=== PATIENT | male | born 1940 | race Caucasian/White ===

== ENCOUNTER 2023-10-20 12:40 | Outpatient (OUT) | payer MEDICARE, SELFPAY ==
--- NOTE | 2023-10-20 12:54 | XR_ITS ---
The [address] [address] Patient Name: KRISTY ABREU MRN: [id number] date: 1940 Sex: M Assigned Patient Location: LAB Current Patient Location: Accession/Order Number: [id number] Exam Date: 10/20/2023 13:00 Report Date: 10/23/2023 07:38 At the request of: MICHEL BUCKLEY Procedure: XR cervical spine 5V EXAMINATION: XR cervical spine 5V HISTORY: Cervical Disc Disease M50.90 COMPARISON: No relevant comparison available. FINDINGS: BONES: 2 mm anterolisthesis of C4 on C5. Mild degenerative spondylosis. Gdob-[id number] facet osteoarthropathy DISC SPACES: Moderate disc space narrowing C3-C4 PARASPINOUS: Negative. No paraspinous abnormality is seen. OTHER: Negative. XR/XR cervical spine 5V IMPRESSION: 2 mm anterolisthesis of C4 Mild to moderate degenerative changes Electronically authenticated by: ELIAS RAJPUT Date: 10/23/2023 07:38
== END 2023-10-20 12:41 | disposition home or self-care (01) ==
LOC: LAB 12:44
PROVIDERS: PCP Family Medicine; Visit Provider Family Medicine
DX: M50.90 Cervical disc disorder, unspecified, unspecified cervical region (principal); R07.9 Chest pain, unspecified; E78.5 Hyperlipidemia, unspecified; I10 Essential (primary) hypertension; R73.09 Other abnormal glucose; Z12.5 Encounter for screening for malignant neoplasm of prostate; Z12.12 Encounter for screening for malignant neoplasm of rectum
CPT/HCPCS: 72050

== ENCOUNTER 2023-10-21 08:23 | Outpatient (OUT) | payer MEDICARE, SELFPAY ==
[2023-10-21 08:48] LABS: Basophils Percent Auto 0.6 % (0.2-2.0); Eosinophils Absolute Auto 0.3 10^3/uL (0.0-0.7); Eosinophils Percent Auto 3.9 % (0.9-7.0); Hematocrit 43.7 % (42.0-54.0); Hemoglobin 14.7 g/dL (14.0-18.0); Immature Granulocytes Abs Auto 0.02 10^3/uL (0.00-0.03); Immature Granulocytes Pct Auto 0.3 % (0.0-0.5); Lymphocytes Absolute Auto 2.6 10^3/uL (1.2-3.8); Lymphocytes Percent Auto 35.5 % (20.5-60.0); Mean Corpuscular HGB Conc 33.6 g/dL (29.9-35.2); Mean Corpuscular Hemoglobin 31.2 pg (25.9-34.0); Mean Corpuscular Volume 92.8 fL (80.0-94.0); Mean Platelet Volume 12.4 fL (9.5-13.5); Monocytes Absolute Auto 0.6 10^3/uL (0.3-0.8); Monocytes Percent Auto 8.6 % (1.7-12.0); Neutrophils Absolute Auto 3.7 10^3/uL (1.4-6.5); Neutrophils Percent Auto 51.1 % (43.0-75.0); Platelet Count 178 10^3/uL (150-450); Red Blood Count 4.71 10^6/uL (4.70-6.10); Red Cell Distribution Width 12.4 % (11.0-15.0); White Blood Count 7.2 10^3/uL (4.0-11.0)
[2023-10-21 09:09] LABS: Estimated Average Glucose 237 mg/dL; Glycohemoglobin A1C 9.9 % (4.5-6.2)
[2023-10-21 09:25] LABS: Alanine Aminotransferase 27 U/L (16-63); Albumin Globulin Ratio 0.9; Albumin Level 3.6 g/dL (3.4-5.0); Alkaline Phosphatase 42 U/L (46-116); Aspartate Amino Transferase 14 U/L (15-37); BUN Creatinine Ratio 12.9; Bilirubin Total 0.4 mg/dL (0.2-1.0); Calcium 8.8 mg/dL (8.5-10.1); Carbon Dioxide 22.2 mmol/L (21.0-32.0); Chloride 101 mmol/L (98-107); Chol HDL Ratio 6.1; Cholesterol 220 mg/dL (<=200); Estimated GFR (African America >60 (>=60); Estimated GFR (Non-African Ame >60 (>=60); Free T3 2.73 pg/mL (2.18-3.98); Glucose 231 mg/dL (74-106); HDL Cholesterol 36 mg/dL (40-60); Potassium 4.2 mmol/L (3.5-5.1); Sodium 136 mmol/L (136-145); Thyroid Stimulating Hormone 3.821 uIU/mL (0.358-3.740); Total Protein 7.6 g/dL (6.4-8.2); Triglycerides 419 mg/dL (<=150); Uric Acid 3.3 mg/dL (3.5-7.2); VLDL CHOLESTEROL 83.8 mg/dL
[2023-10-21 09:29] LABS: Prostate Specific Antigen Scrn 1.45 ng/mL (<=4.00)
[2023-10-21 10:09] LABS: LDL Cholesterol Direct 125 mg/dL
[2023-10-23 13:07] LABS: Insulin 21.4 uIU/mL (2.6-24.9)
== END 2023-10-21 08:24 | disposition home or self-care (01) ==
LOC: LAB 08:24
PROVIDERS: PCP Family Medicine; Visit Provider Family Medicine
DX: M50.90 Cervical disc disorder, unspecified, unspecified cervical region (principal); R07.9 Chest pain, unspecified; E78.5 Hyperlipidemia, unspecified; I10 Essential (primary) hypertension; R73.09 Other abnormal glucose; Z12.5 Encounter for screening for malignant neoplasm of prostate; Z12.12 Encounter for screening for malignant neoplasm of rectum
CPT/HCPCS: 36415; 80053; 80061; 83036; 83525; 83721; 84436; 84443; 84481; 84550; 85025; G0103

== ENCOUNTER 2023-11-09 12:17 | Outpatient (OUT) | payer MEDICARE, SELFPAY ==
--- NOTE | 2023-11-09 12:23 | MR_ITS ---
[address] [address] Patient Name: KRISTY ABREU MRN: [id number] date: 1940 Sex: M Assigned Patient Location: MRI Current Patient Location: MRI Accession/Order Number: [id number] Exam Date: 11/09/2023 12:30 Report Date: 11/09/2023 16:05 At the request of: MICHEL BUCKLEY Procedure: MR cervical spine wo con EXAM: MR cervical spine wo con CLINICAL INDICATION: Cervical disc disease M50.90 COMPARISON: Cervical spine radiographs 10/20/2023. TECHNIQUE/PROTOCOL: Standard noncontrast cervical spine protocol MR performed (Sagittal STIR, T1, T2, axial gradient, T2-weighted images). FINDINGS: Spinal Cord: Normal in signal. Pedicles: Congenitally shortened. Alignment: Normal cervical spine alignment and craniocervical junction. Marrow Signal: Normal. Vertebral Body Heights: Maintained. Paraspinal Soft Tissues: Normal. Neck Soft Tissues: Normal. Spondylotic Changes: Multilevel spondylotic changes include diffuse disc desiccation and varying degrees of intervertebral disc height loss, osteophytic ridging, and facet/uncovertebral joint hypertrophy. C2-C3: No disc bulge or herniation. No high-grade spinal canal or foraminal narrowing. C3-C4: Slight disc osteophyte complex indents the ventral thecal sac and slightly flattens the ventral spinal cord surface. Moderate spinal canal narrowing. Advanced bilateral foraminal narrowing is contributed to by uncovertebral and facet joint hypertrophy. C4-C5: Small central disc protrusion indents the ventral thecal sac and flattens the ventral spinal cord surface. Moderate spinal canal narrowing. Advanced bilateral foraminal narrowing is contributed to by uncovertebral and facet hypertrophy. C5-C6: Slight disc osteophyte complex indents the ventral thecal sac and flattens the ventral spinal cord surface. This in conjunction with ligamentum flavum hypertrophy overall results in moderate to advanced spinal canal narrowing. Advanced bilateral foraminal narrowing is contributed to by uncovertebral and facet joint hypertrophy. C6-C7: Disc osteophyte complex indents the ventral thecal sac and flattens the ventral spinal cord surface. Mild spinal canal narrowing. Moderate bilateral foraminal narrowing is contributed to by uncovertebral and facet joint hypertrophy. C7-T1: No disc bulge or herniation. No high-grade spinal canal or foraminal narrowing. MR/MR cervical spine wo con IMPRESSION: 1. Multilevel spondylotic changes with moderate to advanced spinal canal narrowing at C5-C6. Spinal canal narrowing is moderate at C3-C4 and C4-C5. 2. Foraminal narrowing is advanced bilaterally at C3-C4, C4-C5, and C5-C6, contributed to by uncovertebral and facet joint hypertrophy. Electronically authenticated by: OSKAR HERRMANN Date: 11/09/2023 16:05
== END 2023-11-09 12:18 | disposition home or self-care (01) ==
LOC: MRI 12:18
PROVIDERS: PCP Family Medicine; Visit Provider Family Medicine
DX: M50.90 Cervical disc disorder, unspecified, unspecified cervical region (principal)
CPT/HCPCS: 72141

== ENCOUNTER 2023-11-16 14:11 | Outpatient (OUT) | payer MEDICARE, SELFPAY | END 2023-11-16 14:12 | disposition home or self-care (01) | LOC: MN 14:11 | PROVIDERS: PCP Family Medicine | DX: E11.9 Type 2 diabetes mellitus without complications (principal); Z79.84 Long term (current) use of oral hypoglycemic drugs | CPT/HCPCS: 95250; G0108 ==

== ENCOUNTER 2023-12-26 08:44 | Emergency (ER) | payer MEDICARE, SELFPAY ==
[2023-12-26 08:48] VITALS: BP 146/79; PULSE 67; TEMP 36.7; O2SAT 98; BMI 31.2
--- NOTE | 2023-12-26 08:56 | ED_ITS ---
HPI - Chest Pain General Chief Complaint: Chest Pain Stated Complaint: CHEST PAIN/ SOB Time Seen by Provider: 12/26/23 08:52 Source: patient Mode of arrival: Wheelchair History of Present Illness HPI narrative: 83-year-old male presents for chest pain. He has been having this for a week and it feels like a pressure and its on the left side of his chest. He saw his family doctor today who sent him to the ER to be evaluated. He has a history of cardiac stents and the last one was placed many years ago, perhaps as many as 10 years ago. He is not complaining to me of shortness of breath and there is been no injury. It does not seem to radiate. He does not take an aspirin every day and he did not take any nitroglycerin. Related Data Home Medications ?Medication ?Instructions ?Recorded ?Confirmed aspirin 81 mg capsule 81 mg PO DAILY 12/26/23 12/26/23 levothyroxine 75 mcg tablet mcg 12/26/23 lisinopril 10 mg tablet mg 12/26/23 meloxicam 15 mg tablet mg 12/26/23 metformin 500 mg tablet mg 12/26/23 oxybutynin chloride 5 mg mg PO 12/26/23 tablet,extended release 24 hr rosuvastatin 10 mg tablet mg 12/26/23 Allergies Allergy/AdvReac Type Severity Reaction Status Date / Time No Known Drug Allergies Allergy Verified 12/26/23 08:53 Review of Systems ROS Narrative A ten point review of systems is negative except as noted above. Exam Narrative Exam Narrative: Nurses note and vital signs reviewed and patient is not hypoxic. General: The patient appears well and in no apparent distress. Patient is resting comfortably on cart. Skin: Warm, dry, no pallor noted. There is no rash noted. Head: Normocephalic, atraumatic Eye: Normal conjunctiva, no drainage Ears, Nose, Mouth, and Throat: oral mucosa is moist. Nares patent. Cardiovascular: Regular Rate and Rhythm Respiratory: Patient is in no distress, no accessory muscle use, lungs are clear to auscultation, no wheezing, rales or rhonchi Back: non-tender GI: Soft and nontender Musculoskeletal: The patient has no evidence of calf tenderness, no pitting edema, symmetrical pulses noted bilaterally Neurological: Awake and alert Psychiatric: Cooperative Constitutional Vital Signs, click to edit/add: Last Vital Signs Temp 98.1 F 12/26/23 08:48 Pulse 58 L 12/26/23 10:42 Resp 16 12/26/23 10:42 BP 109/64 12/26/23 10:42 Pulse Ox 97 12/26/23 10:42 Course Vital Signs Vital signs: Vital Signs Temperature 98.1 F 12/26/23 08:48 Pulse Rate 67 12/26/23 08:48 Respiratory Rate 18 12/26/23 08:48 Blood Pressure 146/79 H 12/26/23 08:48 Pulse Oximetry 98 12/26/23 08:48 Temperature 98.1 F 12/26/23 08:48 Pulse Rate 58 L 12/26/23 10:42 Respiratory Rate 16 12/26/23 10:42 Blood Pressure 109/64 12/26/23 10:42 Pulse Oximetry 97 12/26/23 10:42 MDM - Chest Pain MDM Narrative Medical decision making narrative: Initial troponin is elevated at 118. EKG shows no acute changes. He was given aspirin and the nitroglycerin and his pain seems to have resolved. He was ordered IV heparin drip. I have spoken to cardiology, Dr. Oglesby, at [facility] and I have discussed the case with his PCP and his is updated as well. He is agreeable and stable for transfer. My clinical impression is that he has NSTEMI. Differential Diagnosis Differential diagnosis: Likely pneumothorax, stable angina, unstable angina pectoris, atypical chest pain, st elevation myocardial infarction, chest pain and other (NSTEMI) Lab Data Attestation: I reviewed the patient's lab results. Labs: Lab Results 12/26/23 Range/Units 09:00 WBC 8.4 (4.0-11.0) 10^3/uL RBC 4.60 L (4.70-6.10) 10^6/uL Hgb 14.5 (14.0-18.0) g/dL Hct 42.1 (42.0-54.0) % MCV 91.5 (80.0-94.0) fL MCH 31.5 (25.9-34.0) pg MCHC 34.4 (29.9-35.2) g/dL RDW 12.8 (11.0-15.0) % Plt Count 189 (150-450) 10^3/uL MPV 12.2 (9.5-13.5) fL Neut % (Auto) 56.2 (43.0-75.0) % Lymph % (Auto) 30.9 (20.5-60.0) % [place] % (Auto) 8.5 (1.7-12.0) % Eos % (Auto) 3.6 (0.9-7.0) % Baso % (Auto) 0.6 (0.2-2.0) % Neut # (Auto) 4.7 (1.4-6.5) 10^3/uL Lymph # (Auto) 2.6 (1.2-3.8) 10^3/uL [place] # (Auto) 0.7 (0.3-0.8) 10^3/uL Eos # (Auto) 0.3 (0.0-0.7) 10^3/uL Baso # (Auto) 0.1 (0.0-0.1) 10^3/uL Abs Immat Gran (auto) 0.02 (0.00-0.03) 10^3/uL Imm/Tot Granulo (auto) 0.2 (0.0-0.5) % Sodium 135 L (136-145) mmol/L Potassium 4.1 (3.5-5.1) mmol/L Chloride 101 (98-107) mmol/L Carbon Dioxide 20.7 L (21.0-32.0) mmol/L Anion Gap 17.4 BUN 17.0 (7.0-18.0) mg/dL Creatinine 1.07 (0.70-1.30) mg/dL Est GFR ( Amer) >60 (>=60) Est GFR (Non-Af Amer) >60 (>=60) BUN/Creatinine Ratio 15.9 Glucose 262 H (74-106) mg/dL Calcium 8.6 (8.5-10.1) mg/dL Troponin I High Sens 118.2 H* (4.0-76.1) pg/mL Imaging Data Chest x-ray: Radiologist's impression: ITS Impressions Chest X-Ray 12/26/23 09:10 IMPRESSION: 1. Low lung volume examination with mild bibasilar atelectasis versus infiltrates, left greater than right. Electronically authenticated by: PIA BIRD Date: 12/26/2023 09:35 ECG Data Attestation: I personally reviewed and interpreted this ECG as follows: (EKG on my interpretation shows sinus rhythm with 2 PVCs and no acute ST segment elevation) Heart Score History: Highly Suspicious ECG: Normal Age: >65 years Risk Factors: >3 Risk Factors/ HX of CAD:2 Troponin: <3X Normal Limit Total Heart Score Recommendations & Risks:: 7 Critical Care Time Critical Care Time Critical Care Time: Yes Total Critical Care Time: 40 Attestation: Due to the high probability of sudden and clinically significant deterioration in the patient's condition he/she required the highest level of my preparedness to intervene urgently I provided critical care time including documentation time, medication orders and management, reevaluation, vital sign assessment, ordering and reviewing of lab tests, ordering and reviewing of x-ray studies, and admission orders. Aggregate critical care time is 40 minutes including only time during which I was engaged in work directly related to his/her care and did not include time spent treating other patients simultaneously. Discharge Plan Discharge Chief Complaint: Chest Pain Clinical Impression: Non-ST elevation [place] (NSTEMI) Patient Disposition: [facility] Time of Disposition Decision: 11:10 Discharge Location: The [facility] Condition: Good Mode of Transportation: EMS
--- NOTE | 2023-12-26 08:56 | ECG_ITS ---
The [facility] Test Date: 2023-12-26 Pat Name: KRISTY ABREU Department: Room: - Gender: Male [place] R[employer]: : 1940 Requested By: MICHEL BUCKLEY Order Number: [id number] Reading MD: MICHEL BUCKLEY Measurements Intervals [place] Rate: 67 P: 57 RI: 178 QRS: -9 QRSD: 84 T: 103 QT: 396 QTc: 412 Interpretive Statements 1100 Sinus rhythm 1570 with occasional ventricular premature complexes Non-Specific T wave inversion in aVL 9140 abnormal rhythm ECG Compared to ECG 06/05/2022 09:59:47 Ventricular premature complex(es) now present Electronically Signed On 12-26-2023 9:47:18 EDT by MICHEL BUCKLEY
[2023-12-26] MEDS: NITROGLYCERIN 0.4 MG BOTTLE 0.400000000000000022 MG SL (09:01)
[2023-12-26] MEDS: ASPIRIN 81 MG TAB.CHEW 324 MG PO (09:01)
[2023-12-26 09:09] LABS: Basophils Absolute Auto 0.1 10^3/uL (0.0-0.1); Basophils Percent Auto 0.6 % (0.2-2.0); Eosinophils Absolute Auto 0.3 10^3/uL (0.0-0.7); Eosinophils Percent Auto 3.6 % (0.9-7.0); Hematocrit 42.1 % (42.0-54.0); Hemoglobin 14.5 g/dL (14.0-18.0); Immature Granulocytes Abs Auto 0.02 10^3/uL (0.00-0.03); Immature Granulocytes Pct Auto 0.2 % (0.0-0.5); Lymphocytes Absolute Auto 2.6 10^3/uL (1.2-3.8); Lymphocytes Percent Auto 30.9 % (20.5-60.0); Mean Corpuscular HGB Conc 34.4 g/dL (29.9-35.2); Mean Corpuscular Hemoglobin 31.5 pg (25.9-34.0); Mean Corpuscular Volume 91.5 fL (80.0-94.0); Mean Platelet Volume 12.2 fL (9.5-13.5); Monocytes Absolute Auto 0.7 10^3/uL (0.3-0.8); Monocytes Percent Auto 8.5 % (1.7-12.0); Neutrophils Absolute Auto 4.7 10^3/uL (1.4-6.5); Neutrophils Percent Auto 56.2 % (43.0-75.0); Platelet Count 189 10^3/uL (150-450); Red Cell Distribution Width 12.8 % (11.0-15.0); White Blood Count 8.4 10^3/uL (4.0-11.0)
--- NOTE | 2023-12-26 09:10 | XR_ITS ---
The [address] [address] Patient Name: KRISTY ABREU MRN: [id number] date: 1940 Sex: M Assigned Patient Location: ER Current Patient Location: ED.MAIN Accession/Order Number: [id number] Exam Date: 12/26/2023 09:03 Report Date: 12/26/2023 09:35 At the request of: DONNIE CHOWDHURY Procedure: XR chest 1V EXAMINATION: XR chest 1V HISTORY: Chest pain COMPARISON: XR chest 06/05/2022 FINDINGS: LUNGS: Underexpanded lungs with mild opacities within lateral lung bases, left greater than right. VASCULATURE: No increased pulmonary vasculature. PLEURA: No pneumothorax, effusion, or pleural thickening. CARDIAC: No cardiomegaly or cardiac silhouette abnormality. MEDIASTINUM: Prior sternotomy. No abnormal widening. BONES: No fracture or visible bone lesion. OTHER: Negative. XR/XR chest 1V IMPRESSION: 1. Low lung volume examination with mild bibasilar atelectasis versus infiltrates, left greater than right. Electronically authenticated by: PIA BIRD Date: 12/26/2023 09:35
[2023-12-26 09:44] VITALS: BP 146/79; PULSE 64; O2SAT 96
[2023-12-26 09:46] LABS: Anion Gap 17.4; BUN Creatinine Ratio 15.9; Calcium 8.6 mg/dL (8.5-10.1); Carbon Dioxide 20.7 mmol/L (21.0-32.0); Chloride 101 mmol/L (98-107); Estimated GFR (African America >60 (>=60); Estimated GFR (Non-African Ame >60 (>=60); Glucose 262 mg/dL (74-106); Potassium 4.1 mmol/L (3.5-5.1); Sodium 135 mmol/L (136-145)
[2023-12-26 09:57] LABS: Troponin I High Sensitivity 118.2 pg/mL (4.0-76.1)
[2023-12-26 10:42] VITALS: BP 109/64; PULSE 58; O2SAT 97
[2023-12-26 11:16] LABS: Troponin I High Sensitivity 113.7 pg/mL (4.0-76.1)
[2023-12-26] MEDS: HEPARIN SODIUM,PORCINE/D5W 25,000 UNIT/500 ML IV.SOLN 20 UNIT IV (11:26)
[2023-12-26] MEDS: HEPARIN SODIUM (PORCINE) 5,000 UNIT/ML VIAL 2700 UNIT IV (11:27)
[2023-12-26 11:30] LABS: INR 1.07; Partial Thromboplastin Time 29.6 sec (22.3-36.2); Prothrombin Time 11.3 sec (9.0-11.6)
[2023-12-26 12:30] VITALS: BP 142/82; PULSE 87; O2SAT 97
== END 2023-12-26 12:34 | disposition short-term general hospital (02) ==
PROVIDERS: Emergency Provider Emergency Medicine; PCP Family Medicine
DX: I21.4 Non-ST elevation (NSTEMI) myocardial infarction (principal); Z95.5 Presence of coronary angioplasty implant and graft
CPT/HCPCS: 36415; 71045; 80048; 84484; 85025; 85610; 85730; 93005; 96374; 99285

== ENCOUNTER 2024-07-16 13:35 | Outpatient (RCR) | payer MEDICARE, SELFPAY | END 2024-07-30 14:54 | disposition home or self-care (01) | LOC: PT 13:35 | PROVIDERS: PCP Family Medicine; Visit Provider Family Medicine | DX: M54.16 Radiculopathy, lumbar region (principal) | CPT/HCPCS: 97163 ==

== ENCOUNTER 2024-07-31 09:28 | Outpatient (RCR) | payer MEDICARE, SELFPAY | END 2024-08-17 15:02 | disposition home or self-care (01) | LOC: PT 09:28 | PROVIDERS: PCP Family Medicine; Visit Provider Family Medicine | DX: M54.16 Radiculopathy, lumbar region (principal) | CPT/HCPCS: 97012; 97110; 97140 ==